=== PATIENT | male | born 1950 | race Caucasian/White ===

== ENCOUNTER → 2017-08-19 | Emergency (ER) | payer OTHER ==
[2017-08-19 18:13] VITALS: BP 127/85; PULSE 74; RESP 18; TEMP 98; O2SAT 96
--- NOTE | 2017-08-19 18:16 | EDPHY ---
H & P Time Seen by Provider: 08/19/17 18:04 HPI/ROS: CHIEF COMPLAINT: I foreign body HISTORY OF PRESENT ILLNESS: The patient is a 66-year-old man who was sharpening a knife on a stone wheel at home when he got a foreign body to his right eye. This happened 2 days ago. He denies any other injuries. He has had mild pain since then. He states that this has happened to him twice before. He is up-to-date on his tetanus. He does not wear contact lenses, no change in vision. REVIEW OF SYSTEMS: Constitutional: denies: chills, fever, recent illness, recent injury EENTM: See HPIdenies: blurred vision, double vision, nose congestion Respiratory: denies: cough, shortness of breath Cardiac: denies: chest pain, irregular heart rate, lightheadedness, palpitations Gastrointestinal/Abdominal: denies: abdominal pain, diarrhea, nausea, vomiting, blood streaked stools Genitourinary: denies: dysuria, frequency, hematuria, pain Musculoskeletal: denies: joint pain, muscle pain Skin: denies: lesions, rash, jaundice, bruising Neurological: denies: headache, numbness, paresthesia, tingling, dizziness, weakness Hematologic/Lymphatic: denies: blood clots, easy bleeding, easy bruising Immunologic/allergic: denies: HIV/AIDS, transplant EXAM: GENERAL: Well-appearing, well-nourished and in no acute distress. HEAD: Atraumatic, normocephalic. EYES: Dark foreign body 6:00 position in the right eye the. Pupils equal round and reactive to light, extraocular movements intact, sclera anicteric, conjunctiva are normal. Visualized under slit lamp to removal of foreign body, no rust ring negative Saundra sign ENT: TMs normal, nares patent, oropharynx clear without exudates. Moist mucous membranes. NECK: Normal range of motion, supple without lymphadenopathy or JVD. LUNGS: Breath sounds clear to auscultation bilaterally and equal. No wheezes rales or rhonchi. HEART: Regular rate and rhythm without murmurs, rubs or gallops. ABDOMEN: Soft, nontender, normoactive bowel sounds. No guarding, no rebound. No masses appreciated. BACK: No CVA tenderness, no spinal tenderness, step-offs or deformities EXTREMITIES: Normal range of motion, no pitting or edema. No clubbing or cyanosis. NEUROLOGICAL: Cranial nerves II through XII grossly intact. Normal speech, normal gait. 5/5 strength, normal movement in all extremities, normal sensation PSYCH: Normal mood, normal affect. SKIN: Warm, dry, normal turgor, no visible rashes or lesions. Source: Patient Exam Limitations: No limitations - Personal History Tetanus Vaccine Date: ALLERGY TO TETANUS - Medical/Surgical History Hx Asthma: No Hx Chronic Respiratory Disease: No Hx Diabetes: No Hx Cardiac Disease: No Hx Renal Disease: No Hx Cirrhosis: No Hx Alcoholism: No - Family History Significant Family History: No pertinent family hx - Social History Smoking Status: Former smoker Alcohol Use: Sober Drug Use: None Constitutional: Initial Vital Signs Temperature (C) 36.6 C 08/19/17 18:11 Heart Rate 74 08/19/17 18:11 Respiratory Rate 18 08/19/17 18:11 Blood Pressure 127/85 H 08/19/17 18:11 O2 Sat (%) 96 08/19/17 18:11 O2 Delivery Mode Room Air Allergies/Adverse Reactions: NSAIDS (Non-Steroidal Anti-Inflamma Allergy (Intermediate, Verified 09/22/12 18: 33) BLEEDING Home Medications: Medication Instructions Recorded Hydrocodone/APAP 5/325 [[place] 1 tab PO Q4 #15 tab 09/22/12 5/325 (*)] Miscellaneous Medical Supply [NO 1 ea MISC AD 09/22/12 HOME MEDS] Polymyxin B Sulfate/Tmp [Polytrim] 2 drops LEFTEYE QID #1 bottle 09/22/12 Ofloxacin 0.3% [Ocuflox 0.3%] 2 drops OP QID #1 opht.btl 08/19/17 Medical Decision Making ED Course/Re-evaluation: The patient tolerated the procedure well. No rust ring visible after foreign body removal. His eye was anesthetized with proparacaine and then it ear care was used to remove the foreign body. No sign of perforation. I will start him on antibiotics and have him follow up with Ophthalmology. Differential Diagnosis: Partial list of the Differential diagnosis considered include but were not limited to; foreign body, rest during and although unlikely based on the history and physical exam, I also considered perforation, glaucoma, iritis the, conjunctivitis. I discussed these differential diagnoses and the plan with the patient as well as the usual and expected course. The patient understands that the diagnosis is provisional and that in medicine we are not always correct and that further workup is often warranted. Usual and customary warnings were given. All of the patient's questions were answered. The patient was instructed to return to the emergency department should the symptoms at all worsen or return, otherwise to followup with the physician as we discussed. Departure - Departure Disposition: Home, Routine, Self-Care Clinical Impression: Acute foreign body of right cornea Qualifiers: Encounter type: initial encounter Qualified Code(s): T15.01XA - Foreign body in cornea, right eye, initial encounter Condition: Fair Instructions: Corneal Abrasion (ED) Referrals: GIULIA ORDONEZ [Primary Care Provider] - As per Instructions Mauricio Oro MD [Medical Doctor] - As per Instructions Prescriptions: Ofloxacin 0.3% [Ocuflox 0.3%] 2 drops OP QID #1 opht.btl
== END | disposition home or self-care (01) ==
LOC: CED 17:57
PROC: 08C0XZZ Extirpation of Matter from Right Eye, External Approach (ICD-10-PCS; principal; 2017-08-19)
DX: T15.01XA Foreign body in cornea, right eye, initial encounter (principal); Z87.891 Personal history of nicotine dependence; W31.89XA Contact with other specified machinery, initial encounter; Y92.009 Unspecified place in unspecified non-institutional (private) residence as the place of occurrence of the external cause